=== PATIENT | male | born 1970 | race Caucasian/White ===

== ENCOUNTER 2020-01-02 11:16 | Emergency (ER) | payer SELFPAY ==
[~2020-01-02] VITALS: Ht 180.3 cm; Wt 80.2 kg
[2020-01-02 11:22] VITALS: BP 119/80; TEMP 98.4
[2020-01-02 13:49] VITALS: PULSE 53
== END 2020-01-02 13:49 | disposition home or self-care (01) ==
LOC: COL.ER 11:16
DX: J06.9 Acute upper respiratory infection, unspecified (principal); F17.210 Nicotine dependence, cigarettes, uncomplicated